=== PATIENT | female | born 1950 | race Caucasian/White ===

== ENCOUNTER → 2020-08-28 10:31 | Outpatient (CLI) | payer MEDICARE, SELFPAY ==
--- NOTE | ~2020-08-28 | MM_ITS ---
EXAMINATION: MM screening [facility] BI w chandni HISTORY: Screening TECHNIQUE: Craniocaudal and mediolateral oblique 3-D tomosynthesis images were obtained and synthetic 2-D images were generated. CAD analysis was submitted and interpreted. COMPARISON: Comparison to multiple prior studies sequentially, with oldest reviewed study dated 08/23. BREAST PARENCHYMAL COMPOSITION: Breast composed of scattered areas of fibroglandular density. FINDINGS: There is no evidence of suspicious mass, calcification, or architectural distortion to sugg est malignancy in either breast. There has been no suspicious interval change. IMPRESSION: 1. No mammographic evidence of malignancy. 2. Recommend routine screening mammography in one year. BI-RADS Category 1: Negative Reviewed, dictated and finalized at location A.
== END ==
PROVIDERS: PCP Family Medicine; Visit Provider Family Medicine
DX: Z12.31 Encounter for screening mammogram for malignant neoplasm of breast (principal)
CPT/HCPCS: 77063; 77067

== ENCOUNTER 2021-02-03 13:28 | Inpatient (IN) | payer MEDICARE, SELFPAY ==
--- NOTE | ~2021-02-03 | CT_ITS ---
EXAMINATION: CT abdomen pelvis w con DATE: 02/03/2021 14:33 INDICATION: Left lower quadrant pain TECHNIQUE: Computed tomography (CT) of the abdomen and pelvis was performed with 100 cc Omnipaque 350 intravenous contrast. The dose-length product was 558.05 mGy-cm. Automated exposure control and iter ative reconstruction technique were employed. COMPARISON: No prior studies for comparison. FINDINGS: Lung bases are unremarkable. No significant pleural or pericardial effusion. Heart size is normal. Small hiatal hernia. Mild thickening of the distal esophagus. Mild atherosclerosis of the aor ta without evidence for aneurysm. Status post cholecystectomy with expected prominence of the bile ducts. The liver, pancreas, adrenal glands are unremarkable. There are bilateral renal parapelvic cysts. There are calcified granulomas o f the spleen. There is abnormal thickening of the ascending colon with a dilated stool filled cecum in the pelvis. Cecal obstruction cannot be excluded. Scattered colonic diverticulosis without evidence for acute div erticulitis. Bladder is unremarkable. Status post hysterectomy. There are pedicle screws consistent w ith posterior fusion at L4-S1. IMPRESSION: 1. Abnormal thickening with wall enhancement of the ascending colon with dilated stool filled cecum, suspicious for cecal obstruction. Possible etiologies for colon wall thickening include the infectiou s/inflammatory and less likely ischemic colitis. 2: Small hiatal hernia with mild thickening of the distal esophagus, suspicious for esophagitis. Reviewed, dictated and finalized at location A. IMPRESSION: 1. Abnormal thickening with wall enhancement of the ascending colon with dilate d stool filled cecum, suspicious for cecal obstruction. Possible etiologies for colon wall thickening include the infectious/inflammatory and less likely isch emic colitis. 2: Small hiatal hernia with mild thickening of the distal esophagus, suspicious for esophagitis.
--- NOTE | ~2021-02-03 | XR_ITS ---
EXAMINATION: XR abdomen/kub 1V DATE: 02/04/2021 05:41 INDICATION: Cecal stool ball. Bowel obstruction. TECHNIQUE: A supine view of the abdomen was obtained. COMPARISON: CT abdomen and pelvis 02/03/2021 FINDINGS: There is a persistent stool ball in the cecum. The small bowel is normal in caliber. There are changes of posterior fusion procedure in lumbosacral spine. IMPRESSION: 1. Persistent stool ball in the cecum. Reviewed, dictated and finalized at location A.
--- NOTE | ~2021-02-03 | XR_ITS ---
EXAMINATION: XR abdomen/kub 1V DATE: 02/05/2021 06:07 INDICATION: Stool ball in the cecum. TECHNIQUE: A supine view of the abdomen was obtained. COMPARISON: Abdomen radiograph 02/04/2021 FINDINGS: There is contrast in the colon. There is a stricture of proximal ascending colon. There are no dilated loops of bowel. The nasogastric tube tip is in the stomach. Surgical clips in the right u pper quadrant are likely from cholecystectomy. There are changes of posterior fusion procedure in lum bar spine. IMPRESSION: 1. Stricture of the proximal ascending colon suspicious for malignancy. Colonoscopy is recommended. Reviewed, dictated and finalized at location A. IMPRESSION: 1. Stricture of the proximal ascending colon suspicious for malignancy. Colonos copy is recommended.
--- NOTE | ~2021-02-03 | XR_ITS ---
XR abdomen NG/feed tube insert INDICATION: Evaluate NG tube position. TECHNIQUE: Limited KUB perform for evaluating NG tube . COMPARISON: No prior studies for comparison. FINDINGS: NG tube tip in the stomach. Visualized bowel gas pattern is unremarkable.There is residual contrast in the kidneys. IMPRESSION: 1: NG tube tip in the stomach. Reviewed, dictated and finalized at location A.
--- NOTE | ~2021-02-03 | XR_ITS ---
EXAMINATION: XR enema water soluble DATE: 02/04/2021 08:52 INDICATION: Ascending colon stricture. TECHNIQUE: A vat skimmer radiograph was obtained. A catheter was inserted into the patient's rectum. Contra st was infused by gravity. Fluoroscopic spot images and conventional radiographs were obtained. Fluor oscopy exposure time was 0.5 minutes. The total number of images was 35. COMPARISON: CT abdomen and pelvis 02/03/2021 FINDINGS: The nasogastric tube tip is in the stomach. There are surgical clips from cholecystectomy. There are changes of posterior fusion procedure in lumbar spine. There are scattered diverticula in t he colon. There is a stricture of the proximal ascending colon. IMPRESSION: 1. Stricture of the proximal ascending colon suspicious for malignancy. Colonoscopy is recommended. Reviewed, dictated and finalized at location A. IMPRESSION: 1. Stricture of the proximal ascending colon suspicious for malignancy. Colonos copy is recommended.
[2021-02-03 13:32] VITALS: BP 156/90; PULSE 105; RESP 18; TEMP 36.1; O2SAT 98
[2021-02-03 13:46] LABS: Basophils Absolute Auto 0.1 K/mm3 (0.0-0.1); Basophils Percent Auto 0.4 % (0.2-1.2); Eosinophils Absolute Auto 0.3 K/mm3 (0-0.3); Eosinophils Percent Auto 2.5 % (0-4.4); Hematocrit 45.3 % (37.0-47.0); Hemoglobin 14.9 g/dL (12.0-15.0); Immature Granulocyte Absolute 0.05 K/mm3 (0.00-0.031); Immature Granulocyte Percent A 0.4 % (0-0.5); Lymphocytes Percent Auto 35.5 % (18.3-44.2); Mean Corpuscular HGB Conc 32.9 g/dl (32-36); Mean Corpuscular Hemoglobin 28.6 pg (26-34); Mean Corpuscular Volume 86.9 fl (80-100); Mean Platelet Volume 9.3 fl (7.4-10.4); Monocytes Absolute Auto 0.6 K/mm3 (0.1-0.6); Monocytes Percent Auto 4.8 % (2.6-8.5); Neutrophils Percent Auto 56.4 % (45.5-73.1); Platelet Count Result 411 k/mm3 (150-375); Red Blood Count 5.21 M/mm3 (4.2-5.4); Red Cell Distribution Width 12.8 % (11.5-14.5); White Blood Count 12.4 K/mm3 (4.5-10.0)
[2021-02-03 13:48] LABS: Add Urine Microscopic? NO; Appearance Urine Clear (Clear); Bilirubin Urine Negative (Negative); Blood Urine Negative (Negative); Color Urine Yellow (Yellow); Glucose Urine UA Negative (Negative); Ketones Urine Negative (Negative); Leukocyte Esterase Ur Negative LEU/UL (Negative); Nitrate Urine Negative (Negative); Protein Urine Negative (Negative); Specific Grav Ur 1.012 (1.001-1.035); Urobilinogen Urine Negative mg/dL (<2.0)
[2021-02-03 13:58] LABS: Alanine Aminotransferase 24 U/L (4-35); Albumin Level 4.6 g/dL (3.5-5.1); Alkaline Phosphatase 129 U/L (38-126); Anion Gap 6 mmol/L (8-16); Aspartate Amino Transferase 36 U/L (14-36); Bilirubin,Total 0.6 mg/dL (0.2-1.3); Blood Urea Nitrogen 12 mg/dL (7-17); Calcium 9.5 mg/dL (8.4-10.2); Carbon Dioxide 35 mmol/L (22-30); Chloride 97 mmol/L (98-107); Estimated CRCL calculation 70 ml/min; Estimated Glomerular Filt Rate > 60; Glucose 157 mg/dL (65-105); Lipase 90 U/L (23-300); Potassium 3.4 mmol/L (3.4-5.0); Sodium 138 mmol/L (137-145)
[2021-02-03] MEDS: ONDANSETRON INJ 4 MG/2 ML VIAL IV PUSH (14:02)
[2021-02-03] MEDS: MORPHINE SULFATE (*CRX) 4 MG/ML INJ IV PUSH (14:02)
[2021-02-03] MEDS: SODIUM CHLORIDE 0.9% IV 1,000 ML 150 ML IV CONT (14:02)
--- NOTE | 2021-02-03 14:53 | ED.ABDPAIN ---
HPI - Abdominal Pain General Chief Complaint: Abdominal Pain Stated Complaint: abd spasms Time Seen by Provider: 02/03/21 13:35 Source: patient and family Mode of arrival: ambulatory Limitations: no limitations History of Present Illness HPI narrative: 70-year-old with a history of hypertension, diabetes, hypothyroidism here with the complaints of bloating sensation and diffuse abdominal pain since this morning. She denies nausea, vomiting or fever. She also mentions that she is unable to pass flatus. No previous history of any bowel obstruction. Had multiple abdominal surgeries in the past which includes cholecystectomy, appendectomy, hysterectomy. MD elicited complaint: abdominal pain Pertinent past history: diverticulitis Onset (ago): day(s) (1) Pain Consistency: intermittent Location: diffuse Severity: moderate Quality: cramping Migration to: no migration Exacerbating factors: nothing Relieving factors: nothing Related Data Allergies Allergy/AdvReac Type Severity Reaction Status Date / Time lisinopril Allergy Unknown Unknown Verified 02/03/21 13:36 Review of Systems Review of Systems: All systems reviewed & are unremarkable except as noted in HPI and below Constitutional: Constitutional: Reports no additional constitutional complaints Eyes: Eyes: Reports no additional eye complaints ENT: Reports system reviewed and no additional complaints, except as documented Cardiovascular: Cardiovascular: Reports no additional cardiovascular complaints Respiratory: Respiratory: Reports no additional respiratory complaints Gastrointestinal: Gastrointestinal: Reports as per HPI Genitourinary: Genitourinary: Reports no additional female genitourinary complaints Musculoskeletal: Musculoskeletal: Reports no additional musculoskeletal complaints Neurologic: Reports system reviewed and no additional complaints, except as documented PMFSH Social History Social History Smoking status: Never smoker Alcohol intake: never Gender identity (if verbalized by the patient): Female Exam Narrative: Exam Narrative: GENERAL: Well-appearing, well-nourished, and in no acute distress. HEAD: Normocephalic, atraumatic. EYES: PERRLA and EOMI. NECK: Supple. CHEST: Clear to auscultation. No respiratory distress. HEART: Regular rate and rhythm. No murmur heard. Normal peripheral pulses. ABDOMEN: Soft, nondistended, diffuse tenderness more so on the left EXTREMITIES: Normal range of motion. No edema. SKIN: Warm, dry, no rash. NEURO: No focal deficits. Alert and oriented x3. PSYCH: Normal mood and affect. Course Course Emergency Course: Discussed labs, CT findings with the patient. Gave her Dilaudid for pain control discussed with Dr. Claudio recommended NG placement and admit to the hospital. Vital Signs Vital signs: Vital Signs Temperature 36.1 C L 02/03/21 13:32 Pulse Rate 105 H 02/03/21 13:32 Respiratory Rate 18 02/03/21 13:32 Blood Pressure 156/90 H 02/03/21 13:32 Pulse Oximetry 98 02/03/21 13:32 Temperature 36.1 C L 02/03/21 13:32 Pulse Rate 105 H 02/03/21 13:32 Respiratory Rate 18 02/03/21 13:32 Blood Pressure 156/90 H 02/03/21 13:32 Pulse Oximetry 98 02/03/21 13:32 MDM - Abdominal Pain MDM Narrative Medical decision making narrative: With a given history of diverticulitis and diffuse abdominal pain I like to speak with CBC, chemistry and CT of the abdomen meanwhile will control of pain with pain medication. Differential Diagnosis Differential diagnosis: Likely abdominal pain, constipation, diverticulitis and gastroenteritis Lab Data Result diagrams: 02/03/21 13:38 02/03/21 13:38 Labs: Lab Results 02/03/21 02/03/21 02/03/21 Range/Units 13:38 13:38 13:38 WBC 12.4 H (4.5-10.0) K/mm3 RBC 5.21 (4.2-5.4) M/mm3 Hgb 14.9 (12.0-15.0) g/dL Hct 45.3 (37.0-47.0) % MCV 86.9 (80-100) fl
[2021-02-03] MEDS: HYDROmorphone HCL INJ (*CRX) 1 MG/ML SYR IV PUSH (15:21)
[2021-02-03 15:38] VITALS: BP 140/73; PULSE 93; RESP 20; O2SAT 98
[2021-02-03 16:26] VITALS: BP 130/76; PULSE 89; RESP 20; O2SAT 96
--- NOTE | 2021-02-03 16:50 | ADMGEN ---
This patient, Li Grimes, was admitted to Medical Room 244-. Patient/family oriented to hospital policies and general routines including ID bracelet, bed and alarms, visiting hours, pain management, procedures, bathroom and other care routines, personal items, smoking policy, room service/diet, and visiting hours. Information on how to activate the Rapid Response Team has been discussed. Patient/Family are encouraged to report perceived risks to care and to ask questions if they do not understand what they are told or what they should do.
[2021-02-03 17:00] VITALS: BP 129/67; PULSE 91; RESP 14; TEMP 35.9; O2SAT 97; BMI 28.3
[2021-02-03] MEDS: SODIUM CHLORIDE 0.9% IV 1,000 ML 125 ML IV CONT (17:00)
--- NOTE | 2021-02-03 17:32 | PM.IMHP ---
H&P: HPI History of Present Illness Date/Time: 02/03/21 17:32 Chief Complaint: lower abdominal pain Narrative: 62-year-old female was in her usual state of health until around 4:00 p.m. on February 02. After the evening meal she began to experience bloating and intermittent cramping in hypogastric am and both lower quadrants. The cramping became progressively more severe and more frequent. Persisted several seconds at a time. She tolerated to the night. However on the morning of admission she presented the emergency department because the pain had not relented and was occurring more frequently. The pain did not radiate. She did not note any exacerbating or alleviating factors. She denied associated nausea vomiting diarrhea constipation fevers chills or sweats. She denied change in urination including dysuria hematuria frequency or urgency. Her last bowel movement was at 10:15 a.m. February 03. She denied recent change in stools or diet. She denied recent loss of appetite or weight loss. Two months ago she had a similar episode of mild hypogastric bilateral lower quadrant cramps that persisted for a few days. After she increased fluid intake and drink cranberry juice it resolved. She has seemed it was a urinary infection. 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 H/O tubal ligation History of appendectomy Hx of cholecystectomy Social History Social History Smoking status: Never smoker Alcohol intake: never Substance use: never Gender identity (if verbalized by the patient): Female Spiritual care concerns: No Meds Home Medications and Allergies Home Medications Medication Instructions Recorded Confirmed Type Vitamin D3 2,000 mg PO DAILY 02/03/21 02/03/21 History escitalopram oxalate 30 mg PO DAILY 02/03/21 02/03/21 History escitalopram oxalate 30 mg PO DAILY 02/03/21 02/03/21 History flaxseed oil 1 caplet PO DAILY 02/03/21 02/03/21 History hydrochlorothiazide 25 mg PO DAILY 02/03/21 02/03/21 History levothyroxine 125 mcg PO DAILY 02/03/21 02/03/21 History metformin 500 mg PO BID 02/03/21 02/03/21 History Allergies Allergy/AdvReac Type Severity Reaction Status Date / Time lisinopril Allergy Unknown Unknown Verified 02/03/21 17:08 Vital Signs Vital Signs - 24 hr 02/03/21 13:32 02/03/21 15:38 02/03/21 16:26 Temperature 97 F L Pulse Rate 105 H 93 89 Respiratory Rate 18 20 20 Blood Pressure 156/90 H 140/73 130/76 Pulse Oximetry 98 98 96 02/03/21 17:00 Temperature 96.7 F L Pulse Rate 91 Respiratory Rate 14 Blood Pressure 129/67 Pulse Oximetry 97 Exam Narrative: Exam Narrative: HEENT: EOMI, PERRL, sclerae nonicteric, pharyngeal mucosa pink and intact NECK: No JVD, adenopathy, or thyromegaly CHEST: Clear to auscultation. Normal effort. HEART: NL S1/S2, regular, no murmur ABDOMEN: BS+, soft, TENDER RIGHT FLANK TO LOWER QUADRANT WITHOUT GUARDING OR REBOUND, no mass, no bruits EXTREMITIES: No cyanosis, edema, or clubbing NEUROLOGIC: CN intact and symmetric to inspection. MUSCULOSKELETAL: Tone and strength symmetric. PSYCH: Alert. Oriented to person, place, and time. H&P: Results Labs Labs: Short CBC 02/03/21 Range/Units 13:38 WBC 12.4 H (4.5-10.0) K/mm3 Hgb 14.9 (12.0-15.0) g/dL Hct 45.3 (37.0-47.0) % Plt Count 411 H (150-375) k/mm3 [facility] 02/03/21 13:38 Sodium 138 Potassium 3.4
[2021-02-03 18:46] LABS: Glucose Point of Care 108 (65-105)
[2021-02-03 20:00] VITALS: PULSE 92; RESP 16; O2SAT 95
[2021-02-03 20:33] VITALS: BP 122/60; PULSE 92; RESP 16; TEMP 36.6; O2SAT 95
[2021-02-03] MEDS: HYDROmorphone HCL INJ (*CRX) 1 MG/ML SYR 0.5 MG IV PUSH (20:44)
[2021-02-04] MEDS: SODIUM CHLORIDE 0.9% IV 1,000 ML 125 ML IV CONT ×2 (01:00→11:49)
[2021-02-04 04:52] LABS: Hematocrit 40.9 % (37.0-47.0); Hemoglobin 13.4 g/dL (12.0-15.0); Mean Corpuscular HGB Conc 32.8 g/dl (32-36); Mean Corpuscular Hemoglobin 28.5 pg (26-34); Mean Corpuscular Volume 86.8 fl (80-100); Mean Platelet Volume 9.3 fl (7.4-10.4); Platelet Count Result 357 k/mm3 (150-375); Red Blood Count 4.71 M/mm3 (4.2-5.4); Red Cell Distribution Width 12.6 % (11.5-14.5); White Blood Count 10.4 K/mm3 (4.5-10.0)
[2021-02-04 05:10] LABS: Alanine Aminotransferase 77 U/L (4-35); Albumin Level 3.9 g/dL (3.5-5.1); Alkaline Phosphatase 205 U/L (38-126); Anion Gap 3 mmol/L (8-16); Aspartate Amino Transferase 116 U/L (14-36); Bilirubin,Total 0.7 mg/dL (0.2-1.3); Blood Urea Nitrogen 9 mg/dL (7-17); CRP 2.9 mg/dL (<1.0); Calcium 8.8 mg/dL (8.4-10.2); Carbon Dioxide 37 mmol/L (22-30); Chloride 100 mmol/L (98-107); Estimated CRCL calculation 80 ml/min; Estimated Glomerular Filt Rate > 60; Glucose 139 mg/dL (65-105); Magnesium 1.8 mg/dL (1.6-2.3); Phosphorus 3.9 mg/dL (2.5-4.5); Potassium 3.6 mmol/L (3.4-5.0); Sodium 140 mmol/L (137-145)
[2021-02-04 05:14] LABS: Glucose Point of Care 126 (65-105)
[2021-02-04 05:36] LABS: Glucose Point of Care 158 (65-105)
[2021-02-04] MEDS: LEVOTHYROXINE SODIUM INJ 100 MCG/5 ML VIAL 60 MCG IV PUSH (05:36)
[2021-02-04 06:00] VITALS: BP 114/70; PULSE 84; RESP 14; TEMP 36.4; O2SAT 95
--- NOTE | 2021-02-04 08:09 | PM.CNGS ---
Assessment and Plan Assessment and plan (1) Fecal impaction of colon: Code(s): K56.41 - Fecal impaction Status: Acute Assessment and Plan: patient improved after NG suction. I reviewed her CT scan independently as well as her plain films of the abdomen. Etiology of the cecal stool ball is unclear. I will go ahead and get a water-soluble contrast enema this morning. If obstructing mass is found, would plan for right colectomy. If no obstruction noted, consider oral per gives and possibly colonoscopy. Continue NG suction for now. (2) Hypertension, essential: Code(s): I10 - Essential (primary) hypertension Status: Chronic (3) Type 2 diabetes mellitus without complication: Qualifiers: Diabetes mellitus fci insulin use: without ferry terminal agent use Qualified Code(s): E11.9 - Type 2 diabetes mellitus without complications Code(s): E11.9 - Type 2 diabetes mellitus without complications Status: Chronic (4) Hx of thyroid cancer: Code(s): Z85.850 - Personal history of malignant neoplasm of thyroid Status: Chronic History of Present Illness Consult details Consult date: 02/04/21 Reason for consult: abdominal pain Narrative: the patient is a 70-year-old woman who tells me that for over a year she has had some left lower flank pain that can be pretty severe. This will radiate across her lower abdomen and then sometimes up to her shoulders. She has found some relief with this with Mylanta. Sometime she finds relief with a bowel movement. The pain is severe enough that as she is out of the house, she has to go home due to the discomfort. She had a colonoscopy a couple of years ago. I reviewed the report. This was done by Dr. Majano November 27, 2017. He was able to reach the cecum. The colonoscopy was negative except for some diverticulosis. The patient's present illness began 2 days ago on 02/02/2021. They ate an early supper. After supper, about 430 in the afternoon, she started having bilateral subcostal abdominal pain. She then noticed some abdominal swelling or distension. The pain then moved to the suprapubic area and was across the entire lower abdomen. She tolerated this through the night but then came to the emergency room yesterday 02/03/2021. She had a bowel movement yesterday morning. She has not had nausea or vomiting but has felt very distended. She was noted to be tachycardic with an elevated blood pressure in the emergency room. She had no fever. Her white blood cell count was elevated to 12,400. she was noted to have diffuse abdominal tenderness more in the left lower quadrant than the right. CT scan of the abdomen and pelvis was performed. This showed a stool ball in the cecum. Cecum was actually located in the pelvis. There was concern for a narrowing or stricture in the proximal ascending colon as the cause of the cecal stool ball. Small intestine however was not dilated. With the concern for obstruction, the nasogastric tube was placed and she was admitted to the hospital. She had about 600 cc from her NG tube through the night. She notices the pain is slightly better today and her abdominal is tension is gone. She still has pain but now it is mostly in the right lower quadrant. She is seen now in consultation regarding her cecal stool ball with potential for ascending colonic obstruction. Patient has had several surgeries including laparoscopic cholecystectomy, appendectomy and hysterectomy. I know her from laparoscopic cholecystectomy 7 years ago. Review of Systems Review of Systems: All systems reviewed & are unremarkable except as noted in HPI and below Constitutional: Constitutional: Denies chills and Denies fever(s) Cardiovascular: Cardiovascular: Denies chest pain, Denies diaphoresis, Denies dyspnea and Denies paroxysmal nocturnal dyspnea Respiratory: Respiratory: Denies chest congestion, Denies cough and Denies dyspnea Gastrointestinal
[2021-02-04 08:23] LABS: Glucose Point of Care 159 (65-105)
[2021-02-04 09:21] LABS: Hematocrit 42.6 % (37.0-47.0); Hemoglobin 14.2 g/dL (12.0-15.0); Mean Corpuscular HGB Conc 33.3 g/dl (32-36); Mean Corpuscular Hemoglobin 28.6 pg (26-34); Mean Corpuscular Volume 85.7 fl (80-100); Mean Platelet Volume 9.1 fl (7.4-10.4); Platelet Count Result 405 k/mm3 (150-375); Red Blood Count 4.97 M/mm3 (4.2-5.4); Red Cell Distribution Width 12.7 % (11.5-14.5); White Blood Count 10.2 K/mm3 (4.5-10.0)
[2021-02-04] MEDS: ENOXAPARIN 40 MG/0.4 ML SYRINGE SUB-Q (09:30)
[2021-02-04 09:34] VITALS: RESP 14; O2SAT 96
[2021-02-04 09:34] LABS: Anion Gap 5 mmol/L (8-16); Blood Urea Nitrogen 11 mg/dL (7-17); Calcium 8.8 mg/dL (8.4-10.2); Carbon Dioxide 35 mmol/L (22-30); Chloride 99 mmol/L (98-107); Estimated CRCL calculation 80 ml/min; Estimated Glomerular Filt Rate > 60; Glucose 158 mg/dL (65-105); Magnesium 1.9 mg/dL (1.6-2.3); Potassium 3.6 mmol/L (3.4-5.0); Sodium 139 mmol/L (137-145)
[2021-02-04] MEDS: HYDROmorphone HCL INJ (*CRX) 1 MG/ML SYR 0.5 MG IV PUSH (09:34)
[2021-02-04 12:05] LABS: Glucose Point of Care 114 (65-105)
--- NOTE | 2021-02-04 14:32 | PM.IMPN ---
Progress Note: A&P Assessment and Plan (1) Bowel obstruction: Qualifiers: Intestinal obstruction extent: complete Intestinal obstruction type: unspecified Qualified Code(s): K56.601 - Complete intestinal obstruction, unspecified as to cause Code(s): K56.609 - Unspecified intestinal obstruction, unspecified as to partial versus complete obstruction Status: Acute Assessment and Plan: differential diagnosis includes adhesions, infection, ischemia, inflammatory bowel disease in light of colonoscopy less than 5 years ago neoplasm is clinically unlikely IV fluids, nasogastric tube, broad-spectrum antibiotics with Zosyn Follow-up labs and clinical course 02/04/21 14:32 patient is 70-year-old female presented emergency department with a complaint abdominal pain, CT scan of the abdomen showed Abnormal thickening with wall enhancement of the ascending colon with dilated stool filled cecum, suspicious for cecal obstruction. Possible etiologies for colon wall thickening include the infectious/inflammatory and less likely ischemic colitis. At patient was seen bloated NG tube was placed did help with her bloating and pain to further evaluate today patient had a x-ray abdomen and that showed persistent stool ball in the cecum patient was seen by Dr. Claudio general surgeon to further evaluate patient had a contrast enema which showed Stricture of the proximal ascending colon suspicious for malignancy. Discussed with Dr. Claudio recommending surgical removal of the section to relieve the obstruction which is scheduled for ThursdayFebruary 06, will follow-up. (2) Type 2 diabetes mellitus without complication: Qualifiers: Diabetes mellitus fci insulin use: without turn machine operator use Qualified Code(s): E11.9 - Type 2 diabetes mellitus without complications Code(s): E11.9 - Type 2 diabetes mellitus without complications Status: Chronic Assessment and Plan: low-dose corrective NovoLog every 6 hours by sliding scale (3) Hx of thyroid cancer: Code(s): Z85.850 - Personal history of malignant neoplasm of thyroid Status: Chronic Assessment and Plan: continue suppressive levothyroxine at 60 mcg IV q.a.m. as home dose is 125 mcg q.a.m. (4) Hypertension, essential: Code(s): I10 - Essential (primary) hypertension Status: Chronic Assessment and Plan: currently normotensive monitor and initiate IV corrective therapy if necessary Subjective Date/time seen: 02/04/21 14:32 patient is 70-year-old female presented emergency department with a complaint abdominal pain, CT scan of the abdomen showed Abnormal thickening with wall enhancement of the ascending colon with dilated stool filled cecum, suspicious for cecal obstruction. Possible etiologies for colon wall thickening include the infectious/inflammatory and less likely ischemic colitis. At patient was seen bloated NG tube was placed did help with her bloating and pain to further evaluate today patient had a x-ray abdomen and that showed persistent stool ball in the cecum patient was seen by Dr. Claudio general surgeon to further evaluate patient had a contrast enema which showed Stricture of the proximal ascending colon suspicious for malignancy. Discussed with Dr. Claudoi recommending surgical removal of the section to relieve the obstruction which is scheduled for ThursdayFebruary 06, will follow-up. Review of Systems Review of Systems: All systems reviewed & are unremarkable except as noted in HPI and below Exam Narrative: Exam Narrative: Patient is comfortable, NAD HEENT: eyes are clear and none icteric LUNGS:CTA HEART: RR S1S2 ABD: BS+, diffusely tender Lower extremities: no edema SKIN: nonjaundiced Neuro: grossly intact. Objective Data Vital Signs Vital Signs: Vital Signs - 24 hr 02/03/21 15:38 02/03/21 16:26 02/03/21 17:00 Temperature 96.7 F L Pulse Rate 93 89 91 Respiratory Rate
[2021-02-04 14:40] VITALS: BP 146/71; PULSE 81; RESP 12; TEMP 36.4; O2SAT 98
[2021-02-04 17:06] LABS: Glucose Point of Care 118 (65-105)
[2021-02-04] MEDS: KCL 40 MEQ/D5/0.9% SOD CHL 1,000 ML 80 ML IV CONT (18:58)
[2021-02-04 20:00] VITALS: PULSE 81; RESP 12; O2SAT 98
[2021-02-04 21:56] VITALS: BP 142/67; PULSE 74; RESP 16; TEMP 36.3; O2SAT 99
[2021-02-05] MEDS: LEVOTHYROXINE SODIUM INJ 100 MCG/5 ML VIAL 60 MCG IV PUSH (05:14)
[2021-02-05 05:41] LABS: Hematocrit 40.2 % (37.0-47.0); Hemoglobin 13.3 g/dL (12.0-15.0); Mean Corpuscular HGB Conc 33.1 g/dl (32-36); Mean Corpuscular Hemoglobin 28.9 pg (26-34); Mean Corpuscular Volume 87.4 fl (80-100); Mean Platelet Volume 9.4 fl (7.4-10.4); Platelet Count Result 358 k/mm3 (150-375); Red Cell Distribution Width 12.7 % (11.5-14.5); White Blood Count 9.5 K/mm3 (4.5-10.0)
[2021-02-05 05:45] VITALS: BP 125/76; PULSE 73; RESP 16; TEMP 36; O2SAT 98
[2021-02-05 05:50] LABS: Alanine Aminotransferase 46 U/L (4-35); Albumin Level 3.7 g/dL (3.5-5.1); Alkaline Phosphatase 162 U/L (38-126); Anion Gap 6 mmol/L (8-16); Aspartate Amino Transferase 49 U/L (14-36); Bilirubin,Total 0.4 mg/dL (0.2-1.3); Blood Urea Nitrogen 10 mg/dL (7-17); Calcium 8.5 mg/dL (8.4-10.2); Carbon Dioxide 34 mmol/L (22-30); Chloride 104 mmol/L (98-107); Estimated CRCL calculation 94 ml/min; Estimated Glomerular Filt Rate > 60; Glucose 123 mg/dL (65-105); Potassium 3.5 mmol/L (3.4-5.0); Sodium 144 mmol/L (137-145)
[2021-02-05 06:13] LABS: Glucose Point of Care 113 (65-105)
[2021-02-05 09:22] LABS: Carcinoembryonic Antigen 1.2 ng/mL (0.0-3.0)
--- NOTE | 2021-02-05 09:24 | PM.PNGS ---
Progress Note: A&P Assessment and Plan (1) Fecal impaction of colon: Code(s): K56.41 - Fecal impaction Status: Acute Assessment and Plan: Patient has had multiple BMs following hypaque enema, although this did show that there was a stricture of the proximal ascending colon. Discussed the case and plan with Dr. Claudio. Will continue NG tube decompression and bowel rest. Plan to proceed with a hand-assisted laparoscopic right colectomy by Dr. Claudio tomorrow. Briefly discussed the procedure, possible complications, benefits, and expected recovery with the patient. Questions answered. (2) Type 2 diabetes mellitus without complication: Qualifiers: Diabetes mellitus jail insulin use: without moth exterminator use Qualified Code(s): E11.9 - Type 2 diabetes mellitus without complications Code(s): E11.9 - Type 2 diabetes mellitus without complications Status: Chronic (3) Hypertension, essential: Code(s): I10 - Essential (primary) hypertension Status: Chronic Subjective Subjective Date/Time Seen: 02/05/21 09:24 Patient reports: no new complaints, feels better and bowel movement Interval history: Patient feeling better this morning. Multiple BMs following water-soluble contrast study. Review of Systems Review of Systems: All systems reviewed & are unremarkable except as noted in HPI and below Exam Const: General: comfortable, no acute distress, alert and awake Orientation/consciousness: patient oriented x3 GI: Inspection: non-distended and no visible herniation GI Palp: Yes Soft to palpation, Yes Tenderness to palpation present (GI) (mild RLQ) and No Guarding due to palpation present (GI) Auscultation: Hypoactive bowel sounds present Skin: General skin exam: normal color Neuro: General: moves all extremities and no focal motor deficits Speech: normal speech Extrem: General: no clubbing, cyanosis or edema Psych: Mental Status: mental status grossly normal Attitude: cooperative Thought process: Normal thought process present Thought content: Yes Normal thought content present Insight: Good insight present (Psych) Judgement: Good judgement present (Psych) Objective Data Vital Signs Vital Signs: Vital Signs - 24 hr 02/04/21 09:34 02/04/21 14:40 02/04/21 20:00 Temperature 97.5 F L Pulse Rate 81 81 Respiratory Rate 14 12 12 Blood Pressure 146/71 H Pulse Oximetry 96 98 98 02/04/21 21:56 02/05/21 05:45 Temperature 97.4 F L 96.8 F L Pulse Rate 74 73 Respiratory Rate 16 16 Blood Pressure 142/67 H 125/76 Pulse Oximetry 99 98 Intake/Output Intake/Output: Intake & Output 02/02/21 02/03/21 02/04/21 02/05/21 22:59 23:59 23:59 23:59 Intake Total 3080 50 Output Total 2000 600 Balance 1080 -550 Meds/Results Medications: Active Medications Generic Name Dose Route Start Last Admin Trade Name Freq PRN Reason Stop Dose Admin Dextrose 12.5 gm 02/03/21 17:30 Dextrose 50% 25 Gm/50 Ml Syringe IV PUSH PRN PRN Hypoglycemia Protocol Enoxaparin Sodium 40 mg 02/04/21 09:00 02/04/21 09:30 Enoxaparin 40 Mg/0.4 Ml Syringe SUB-Q 40 mg DAILY ROBERT Administration Glucagon 1 mg 02/03/21 17:30 Glucagon For Inj 1 Mg Vial IM PRN PRN Hypoglycemia Protocol Glucose 15 gm 02/03/21 17:30 Glucose Oral Gel 15 Gm Of Glucse In 37.5 Gm Tube PO PRN PRN Hypoglycemia Protocol Hydromorphone HCl 0.5 mg 02/03/21 15:17 02/04/21 09:34 Hydromorphone Hcl Inj (*Crx) 1 Mg/Ml Syr IV PUSH 0.5 mg Q4H PRN Administration Pain Rated 7-10 Dextrose 1,000 mls @ 100 mls/hr 02/03/21 17:30 Dextrose 5% 1,000 Ml IVPB PRN PRN Hypoglycemia Protocol Piperacillin/Tazobactam/Dextrose 3.375 gm in 50 mls @ 100 mls/hr 02/03/21 18:10 02/05/21 05:14 Zosyn 3.375 Gm/D5w 50ml Pm IVPB 100 mls/hr Q6HR ROBERT Administration Potassium Chloride/Dextrose/Sod Cl 1,000 mls @ 80 mls/hr 02/04/21 1
[2021-02-05] MEDS: KCL 40 MEQ/D5/0.9% SOD CHL 1,000 ML 80 ML IV CONT ×2 (09:40→23:32)
[2021-02-05] MEDS: ENOXAPARIN 40 MG/0.4 ML SYRINGE SUB-Q (09:40)
[2021-02-05] MEDS: PANTOPRAZOLE SODIUM IV 40 MG VIAL IV PUSH ×2 (11:40→20:45)
[2021-02-05 12:46] LABS: Glucose Point of Care 124 (65-105)
--- NOTE | 2021-02-05 13:10 | PM.IMPN ---
Progress Note: A&P Assessment and Plan (1) Bowel obstruction: Qualifiers: Intestinal obstruction extent: complete Intestinal obstruction type: unspecified Qualified Code(s): K56.601 - Complete intestinal obstruction, unspecified as to cause Code(s): K56.609 - Unspecified intestinal obstruction, unspecified as to partial versus complete obstruction Status: Acute Assessment and Plan: differential diagnosis includes adhesions, infection, ischemia, inflammatory bowel disease in light of colonoscopy less than 5 years ago neoplasm is clinically unlikely IV fluids, nasogastric tube, broad-spectrum antibiotics with Zosyn Follow-up labs and clinical course 02/04 patient is 70-year-old female presented emergency department with a complaint abdominal pain, CT scan of the abdomen showed Abnormal thickening with wall enhancement of the ascending colon with dilated stool filled cecum, suspicious for cecal obstruction. Possible etiologies for colon wall thickening include the infectious/inflammatory and less likely ischemic colitis. At patient was seen bloated NG tube was placed did help with her bloating and pain to further evaluate today patient had a x-ray abdomen and that showed persistent stool ball in the cecum patient was seen by Dr. Claudio general surgeon to further evaluate patient had a contrast enema which showed Stricture of the proximal ascending colon suspicious for malignancy. Discussed with Dr. Claudio recommending surgical removal of the section to relieve the obstruction which is scheduled for ThursdayFebruary 06, will follow-up. 02/05 today patient states feeling better not as bloated, patient is seen by surgery team and plan to have a hand-assisted laparoscopic right colectomy by Dr. Claudio tomorrow, patient clinically stable will continue to monitor will follow patient after the surgery and further recommendation to follow (2) Type 2 diabetes mellitus without complication: Qualifiers: Diabetes mellitus block layer insulin use: without block layer use Qualified Code(s): E11.9 - Type 2 diabetes mellitus without complications Code(s): E11.9 - Type 2 diabetes mellitus without complications Status: Chronic Assessment and Plan: low-dose corrective NovoLog every 6 hours by sliding scale (3) Hx of thyroid cancer: Code(s): Z85.850 - Personal history of malignant neoplasm of thyroid Status: Chronic Assessment and Plan: continue suppressive levothyroxine at 60 mcg IV q.a.m. as home dose is 125 mcg q.a.m. (4) Hypertension, essential: Code(s): I10 - Essential (primary) hypertension Status: Chronic Assessment and Plan: currently normotensive monitor and initiate IV corrective therapy if necessary Subjective Date/time seen: 02/05/21 13:10 02/04 patient is 70-year-old female presented emergency department with a complaint abdominal pain, CT scan of the abdomen showed Abnormal thickening with wall enhancement of the ascending colon with dilated stool filled cecum, suspicious for cecal obstruction. Possible etiologies for colon wall thickening include the infectious/inflammatory and less likely ischemic colitis. At patient was seen bloated NG tube was placed did help with her bloating and pain to further evaluate today patient had a x-ray abdomen and that showed persistent stool ball in the cecum patient was seen by Dr. Claudio general surgeon to further evaluate patient had a contrast enema which showed Stricture of the proximal ascending colon suspicious for malignancy. Discussed with Dr. Claudio recommending surgical removal of the section to relieve the obstruction which is scheduled for ThursdayFebruary 06, will follow-up. 02/05 today patient states feeling better not as bloated, patient is seen by surgery team and plan to have a hand-assisted laparoscopic right colectomy by Dr. Claudio tomorrow, patient clinically stable will continue to monitor will follow pa
[2021-02-05 14:00] VITALS: BP 133/78; PULSE 67; RESP 18; TEMP 36.6; O2SAT 100
[2021-02-05 18:38] LABS: Glucose Point of Care 102 (65-105)
[2021-02-05 21:18] VITALS: BP 144/81; PULSE 80; RESP 16; TEMP 36.2; O2SAT 98
[2021-02-05 21:39] LABS: Glucose Point of Care 127 (65-105)
[2021-02-06] VITALS (16 sets, daily range): BP systolic 107–171; BP diastolic 60–87; PULSE 70–107; RESP 14–18; TEMP 35.8–36.9; O2SAT 91–100
[2021-02-06 00:15] LABS: Glucose Point of Care 129 (65-105)
[2021-02-06 05:34] LABS: Hematocrit 38.4 % (37.0-47.0); Hemoglobin 12.5 g/dL (12.0-15.0); Mean Corpuscular HGB Conc 32.6 g/dl (32-36); Mean Corpuscular Volume 85.9 fl (80-100); Mean Platelet Volume 9.3 fl (7.4-10.4); Platelet Count Result 331 k/mm3 (150-375); Red Blood Count 4.47 M/mm3 (4.2-5.4); Red Cell Distribution Width 12.6 % (11.5-14.5); White Blood Count 9.3 K/mm3 (4.5-10.0)
[2021-02-06] MEDS: LEVOTHYROXINE SODIUM INJ 100 MCG/5 ML VIAL 60 MCG IV PUSH (05:43)
[2021-02-06 05:46] LABS: Alanine Aminotransferase 32 U/L (4-35); Albumin Level 3.5 g/dL (3.5-5.1); Alkaline Phosphatase 128 U/L (38-126); Anion Gap 5 mmol/L (8-16); Aspartate Amino Transferase 36 U/L (14-36); Bilirubin,Total 0.3 mg/dL (0.2-1.3); Blood Urea Nitrogen 11 mg/dL (7-17); Calcium 8.7 mg/dL (8.4-10.2); Carbon Dioxide 31 mmol/L (22-30); Chloride 109 mmol/L (98-107); Estimated CRCL calculation 80 ml/min; Estimated Glomerular Filt Rate > 60; Glucose 146 mg/dL (65-105); Sodium 145 mmol/L (137-145)
[2021-02-06 06:06] LABS: Glucose Point of Care 150 (65-105)
[2021-02-06 08:20] LABS: Glucose Point of Care 138 (65-105)
[2021-02-06] MEDS: PANTOPRAZOLE SODIUM IV 40 MG VIAL IV PUSH (08:41)
[2021-02-06 10:59] LABS: Glucose Point of Care 131 (65-105)
--- NOTE | 2021-02-06 12:03 | PM.IMPN ---
Progress Note: A&P Assessment and Plan (1) Bowel obstruction: Qualifiers: Intestinal obstruction extent: complete Intestinal obstruction type: unspecified Qualified Code(s): K56.601 - Complete intestinal obstruction, unspecified as to cause Code(s): K56.609 - Unspecified intestinal obstruction, unspecified as to partial versus complete obstruction Status: Acute Assessment and Plan: differential diagnosis includes adhesions, infection, ischemia, inflammatory bowel disease in light of colonoscopy less than 5 years ago neoplasm is clinically unlikely IV fluids, nasogastric tube, broad-spectrum antibiotics with Zosyn Follow-up labs and clinical course 02/06/21 12:03 02/04 patient is 70-year-old female presented emergency department with a complaint abdominal pain, CT scan of the abdomen showed Abnormal thickening with wall enhancement of the ascending colon with dilated stool filled cecum, suspicious for cecal obstruction. Possible etiologies for colon wall thickening include the infectious/inflammatory and less likely ischemic colitis. At patient was seen bloated NG tube was placed did help with her bloating and pain to further evaluate today patient had a x-ray abdomen and that showed persistent stool ball in the cecum patient was seen by Dr. Claudio general surgeon to further evaluate patient had a contrast enema which showed Stricture of the proximal ascending colon suspicious for malignancy. Discussed with Dr. Claudio recommending surgical removal of the section to relieve the obstruction which is scheduled for ThursdayFebruary 06, will follow-up. 02/05 today patient states feeling better not as bloated, patient is seen by surgery team and plan to have a hand-assisted laparoscopic right colectomy by Dr. Claudio tomorrow, patient clinically stable will continue to monitor will follow patient after the surgery and further recommendation to follow. 02/06 today patient states feeling much better had a BM this morning, NG tube on clamp and ambulating denies any abdominal pain nausea or vomiting, currently NPO for surgery this afternoon, continue to monitor further recommendation to follow (2) Type 2 diabetes mellitus without complication: Qualifiers: Diabetes mellitus assisted insulin use: without intermodal dispatcher use Qualified Code(s): E11.9 - Type 2 diabetes mellitus without complications Code(s): E11.9 - Type 2 diabetes mellitus without complications Status: Chronic Assessment and Plan: low-dose corrective NovoLog every 6 hours by sliding scale (3) Hx of thyroid cancer: Code(s): Z85.850 - Personal history of malignant neoplasm of thyroid Status: Chronic Assessment and Plan: continue suppressive levothyroxine at 60 mcg IV q.a.m. as home dose is 125 mcg q.a.m. (4) Hypertension, essential: Code(s): I10 - Essential (primary) hypertension Status: Chronic Assessment and Plan: currently normotensive monitor and initiate IV corrective therapy if necessary Subjective Date/time seen: 02/06/21 12:03 02/04 patient is 70-year-old female presented emergency department with a complaint abdominal pain, CT scan of the abdomen showed Abnormal thickening with wall enhancement of the ascending colon with dilated stool filled cecum, suspicious for cecal obstruction. Possible etiologies for colon wall thickening include the infectious/inflammatory and less likely ischemic colitis. At patient was seen bloated NG tube was placed did help with her bloating and pain to further evaluate today patient had a x-ray abdomen and that showed persistent stool ball in the cecum patient was seen by Dr. Claudio general surgeon to further evaluate patient had a contrast enema which showed Stricture of the proximal ascending colon suspicious for malignancy. Discussed with Dr. Claudio recommending surgical removal of the section to relieve the obstruction which is scheduled for Thursday
--- NOTE | 2021-02-06 13:02 | WPDANESEPPF ---
Anes - Initial Pre Proc Eval Procedure: Operation Date: 02/06/21 13:30 Proposed Procedures p Hand Assisted Laparoscopic Right Colectomy - Dougie Claudio MD Date/Time: 02/06/21 13:02 Surgeon: Enoch Cleveland MD Pre Op Diagnosis: Bowel obstruction Patient Data Age: 70 Gender: F Height: 1.66 m Weight: 78.6 kg Last Vital Signs Temp 35.8 C L 02/06/21 07:51 Pulse 70 02/06/21 07:51 Resp 18 02/06/21 08:41 BP 139/61 02/06/21 07:51 Pulse Ox 96 02/06/21 08:41 Allergies Allergy/AdvReac Type Severity Reaction Status Date / Time lisinopril Allergy Unknown Unknown Verified 02/03/21 17:08 Home Medications Medication Instructions Recorded Confirmed Type Vitamin D3 2,000 mg PO DAILY 02/03/21 02/03/21 History escitalopram oxalate 30 mg PO DAILY 02/03/21 02/03/21 History escitalopram oxalate 30 mg PO DAILY 02/03/21 02/03/21 History flaxseed oil 1 caplet PO DAILY 02/03/21 02/03/21 History hydrochlorothiazide 25 mg PO DAILY 02/03/21 02/03/21 History levothyroxine 125 mcg PO DAILY 02/03/21 02/03/21 History metformin 500 mg PO BID 02/03/21 02/03/21 History Laboratory Tests 02/05/21 02/05/21 02/06/21 18:31 20:57 00:12 WBC RBC Hgb Hct MCV MCH MCHC RDW Plt Count MPV Sodium Potassium Chloride Carbon Dioxide Anion Gap BUN Creatinine Estim Creat Clear Calc Estimated GFR Glucose POC Capillary Glucose 102 mg/dl mg/dl 127 mg/dl H mg/dl 129 mg/dl H mg/dl (65-105) (65-105) (65-105) Calcium Total Bilirubin AST ALT Alkaline Phosphatase Total Protein Albumin 02/06/21 02/06/21 02/06/21 05:12 05:12 05:49 WBC 9.3 K/mm3 K/mm3 (4.5-10.0) RBC 4.47 M/mm3 M/mm3 (4.2-5.4) Hgb 12.5 g/dL g/dL (12.0-15.0) Hct 38.4 % % (37.0-47.0) MCV 85.9 fl fl (80-100) MCH 28.0 pg pg (26-34) MCHC 32.6 g/dl g/dl (32-36) RDW 12.6 % % (11.5-14.5) Plt Count 331 k/mm3 k/mm3 (150-375) MPV 9.3 fl fl (7.4-10.4) Sodium 145 mmol/L mmol/L (137-145) Potassium 4.0 mmol/L mmol/L (3.4-5.0) Chloride 109 mmol/L H mmol/L (98-107) Carbon Dioxide 31 mmol/L H mmol/L (22-30) Anion Gap 5 mmol/L L mmol/L (8-16) BUN 11 mg/dL mg/dL (7-17) Creatinine 0.60 mg/dL L mg/dL (0.7-1.0) Estim Creat Clear Calc 80 ml/min ml/min Estimated GFR > 60 (59 - ) Glucose 146 mg/dL H mg/dL (65-105) POC Capillary Glucose 150 mg/dl H mg/dl (65-105) Calcium 8.7 mg/dL mg/dL (8.4-10.2) Total Bilirubin 0.3 mg/dL mg/dL (0.2-1.3) AST 36 U/L U/L (14-36) ALT 32 U/L U/L (4-35) Alkaline Phosphatase 128 U/L H U/L (38-126) Total Protein 7.0 g/dL g/dL (6.3-8.2) Albumin 3.5 g/dL g/dL (3.5-5.1) 02/06/21 02/06/21 08:00 10:57 WBC RBC Hgb Hct MCV MCH MCHC RDW Plt Count MPV Sodium Potassium Chloride Carbon Dioxide Anion Gap BUN Creatinine Estim Creat Clear Calc Estimated GFR Glucose POC Capillary Glucose 138 mg/dl H mg/dl 131 mg/dl H mg/dl (65-105) (65-105) Calcium Total Bilirubin AST ALT Alkaline Phosphatase Total Protein Albumin Patient hx anesthesia problems: none Family hx anesthesia problems: none [facility] Past Medical History Medical History (Updated
[2021-02-06] MEDS: LACTATED RINGERS 1,000 ML 30 ML IV CONT ×3 (13:15→17:54)
--- NOTE | 2021-02-06 14:12 | WPDHPUPDATE1 ---
History and Physical Update Update Date/Time: 02/06/21 14:12 History and Physical has been reviewed, including an updated exam of the patient. There are NO changes in the patient's condition. Risks, benefits, and alternatives have been discussed and questions answered. Patient agrees to proceed with procedure.
[2021-02-06] MEDS: ceFAZolin 2 GM/D5W 50 ML 2 GM/50 ML BAG IVPB (14:19)
[2021-02-06] MEDS: metroNIDAZOLE 500 MG/ISO 100ML 500 MG/100 ML BAG 100 MG IVPB (14:36)
--- NOTE | 2021-02-06 15:09 | PC.NURSE ---
On 02/06/21, the student, [ Tianna Gillespie], provided care and completed [facility] documentation on this patient. I have reviewed the student's documentation and agree with the findings.
[2021-02-06] MEDS: BUPIVACAINE/EPINEPHRINE 0.5% 30 ML VIAL 26 ML INFILTRATE (16:40)
--- NOTE | 2021-02-06 17:12 | PM.PROC ---
Procedure Note - Detailed Date of procedure: 02/06/21 Pre-op diagnosis: Ascending colon stricture, cecal stool ball Ascending colon stricture, cecal stool ball Post-op diagnosis: same Procedure performed: Hand access laparoscopic right colectomy Description of procedure: Brief history-patient presented with lower abdominal pain and was found on CT scan to have a stool ball in the cecum which was located in the pelvis. There appeared to be a mass or stricture in the proximal ascending colon causing the fecal retention. High peak enema was done and also showed evidence of a proximal ascending colon stricture concerning for malignancy. The patient also had abdominal distention and small-bowel obstruction due to the cecal obstruction. She is taken now to surgery for hand access laparoscopic right colectomy. The patient was taken to surgery and induced into general anesthesia. The abdomen was prepped and draped. The proposed hand access incisions was marked in the upper abdomen in the midline above the umbilicus. It was about a 6 cm incision. It was marked on the skin. Local was infiltrated in the area of the anticipated incision and in the deeper subcutaneous tissues. Incision was made and dissection was carried down through the midline fascia. The peritoneal cavity was entered. I checked around the area. There were no anterior abdominal wall adhesions. The Rolf wound guard was then placed. A sponge was placed in the abdomen. The GelPort was then placed. With a hand in the abdomen, I found the area in the right lower quadrant where the camera port would be placed. Local was infiltrated here. Incision was made and a 5 mm trocar was then placed in the right lower quadrant just above the inguinal ligament. We insufflated through here. I then placed under direct visualization another 5 mm port in the left mid abdomen. Again local was used and a 5 mm trocar was placed. We then placed the patient in Trendelenburg with the right side somewhat elevated. The peritoneum was entered just posterior to the cecum and the appendix. We then entered the retroperitoneum and began a medial to lateral dissection of the ascending colon. The cecum was very floppy and distended but no significant stool ball was appreciated. I palpated in the ascending colon for an area of stricture or possibly a tumor. I was not able to feel either 1. I continued the retroperitoneal dissection up to the transverse mesocolon. We stayed above the duodenum and I was able to palpate the right kidney in the retroperitoneum, its expected position. From there I then elevated the distal ileum and terminal ileum. The ileocolic artery was identified. I divided the mesentery proximal to the ileocolic artery. This division was done with the LigaSure. Literally all the dissection was done with the LigaSure. I opened the mesentery up to an area on the distal ileum which would be our proximal extent of resection. I then proceeded staying fairly close to the root of the mesentery over to the ileocolic artery. I dissected around and expose the ileocolic artery near its origin. It was then cauterized and divided with the LigaSure. There was no bleeding. I then continued the mesenteric dissection up to the transverse mesocolon. Care was taken to leave the duodenum located posterior to our mesenteric division. From there I then went to the lateral peritoneal attachments to the cecum and ascending colon. These were divided with the LigaSure as well. This was continued up to the hepatic flexure and likewise the hepatocolic ligament was divided with the LigaSure. Patient had a previous cholecystectomy and there were omental adhesions to the gallbladder fossa. These were divided with the LigaSure to further mobilize the proximal transverse colon. I was then able to expose the transverse colon mesentery. I started the dissection from lateral to medial in the transverse colon mesentery. Vascular struct
[2021-02-06] MEDS: fentaNYL CITRATE INJ (*CRX) 100 MCG/2 ML VIAL 25 MCG IV PUSH ×4 (17:39→17:58)
--- NOTE | 2021-02-06 18:10 | SUR.PHASEI ---
PT DOZING IN INTERVALS. STATES MILD SORENESS TO ABDOMEN. TOLERABLE.
[2021-02-06 18:19] LABS: Glucose Point of Care 131 (65-105)
[2021-02-06] MEDS: KCL 40 MEQ/D5/0.9% SOD CHL 1,000 ML 80 ML IV CONT (18:52)
[2021-02-06] MEDS: HYDROcodone/acetaminophen (*CRX) 5-325 MG TABLET 1 TAB PO (22:29)
[2021-02-07] VITALS (7 sets, daily range): BP systolic 107–154; BP diastolic 56–81; PULSE 88–111; RESP 16–18; TEMP 36.7–37.5; O2SAT 93–96
[2021-02-07] MEDS: LEVOTHYROXINE SODIUM 125 MCG TABLET PO (06:12)
[2021-02-07 06:26] LABS: Alanine Aminotransferase 35 U/L (4-35); Albumin Level 3.3 g/dL (3.5-5.1); Alkaline Phosphatase 145 U/L (38-126); Anion Gap 7 mmol/L (8-16); Aspartate Amino Transferase 47 U/L (14-36); Bilirubin,Total 0.4 mg/dL (0.2-1.3); Blood Urea Nitrogen 7 mg/dL (7-17); Calcium 8.2 mg/dL (8.4-10.2); Carbon Dioxide 26 mmol/L (22-30); Chloride 109 mmol/L (98-107); Estimated CRCL calculation 94 ml/min; Estimated Glomerular Filt Rate > 60; Glucose 177 mg/dL (65-105); Potassium 3.7 mmol/L (3.4-5.0); Sodium 142 mmol/L (137-145)
[2021-02-07 06:28] LABS: Hemoglobin 12.8 g/dL (12.0-15.0); Mean Corpuscular HGB Conc 32.8 g/dl (32-36); Mean Corpuscular Hemoglobin 28.7 pg (26-34); Mean Corpuscular Volume 87.4 fl (80-100); Mean Platelet Volume 10.6 fl (7.4-10.4); Platelet Count Result 327 k/mm3 (150-375); Red Blood Count 4.46 M/mm3 (4.2-5.4); Red Cell Distribution Width 12.9 % (11.5-14.5); White Blood Count 18.2 K/mm3 (4.5-10.0)
[2021-02-07] MEDS: KCL 40 MEQ/D5/0.9% SOD CHL 1,000 ML 80 ML IV CONT (06:40)
[2021-02-07 07:40] LABS: Glucose Point of Care 155 (65-105)
[2021-02-07] MEDS: ESCITALOPRAM OXALATE 10 MG TABLET 30 MG PO (08:05)
[2021-02-07] MEDS: ENOXAPARIN 40 MG/0.4 ML SYRINGE SUB-Q (08:05)
[2021-02-07] MEDS: metFORMIN HCL 500 MG TABLET PO ×2 (08:06→17:32)
[2021-02-07] MEDS: CHOLECALCIFEROL 1,000 UNITS TABLET 2000 UNITS PO (08:06)
[2021-02-07] MEDS: hydroCHLOROthiazide 25 MG TABLET PO (08:07)
[2021-02-07] MEDS: PANTOPRAZOLE 40 MG TABLET PO (08:07)
--- NOTE | 2021-02-07 09:26 | WPDANESPN ---
Anes - Prog Note Post-Op Date/Time: 02/07/21 09:26 Cardiovascular status: normal Respiratory status: normal Airway patency: baseline Mental status: baseline Post-Op hydration status: normal Vital Signs: Last Vital Signs Temp 37.2 C 02/07/21 05:47 Pulse 99 02/07/21 05:47 Resp 16 02/07/21 05:47 BP 118/73 02/07/21 05:47 Pulse Ox 94 02/07/21 05:47 Pain Score (VAS): 1 I/O: Intake & Output 02/06/21 02/07/21 02/07/21 23:59 07:59 15:59 Intake Total 400 1300 Output Total 900 Balance 400 400 Laboratory Tests 02/07/21 05:11 02/07/21 05:11 02/06/21 02/06/21 02/07/21 10:57 18:17 05:11 WBC 18.2 H RBC 4.46 Hgb 12.8 Hct 39.0 MCV 87.4 MCH 28.7 MCHC 32.8 RDW 12.9 Plt Count 327 MPV 10.6 H Sodium Potassium Chloride Carbon Dioxide Anion Gap BUN Creatinine Estim Creat Clear Calc Estimated GFR Glucose POC Capillary Glucose 131 H 131 H Calcium Total Bilirubin AST ALT Alkaline Phosphatase Total Protein Albumin 02/07/21 02/07/21 05:11 07:34 WBC RBC Hgb Hct MCV MCH MCHC RDW Plt Count MPV Sodium 142 Potassium 3.7 Chloride 109 H Carbon Dioxide 26 Anion Gap 7 L BUN 7 Creatinine 0.50 L Estim Creat Clear Calc 94 Estimated GFR > 60 Glucose 177 H POC Capillary Glucose 155 H Calcium 8.2 L Total Bilirubin 0.4 AST 47 H ALT 35 Alkaline Phosphatase 145 H Total Protein 7.0 Albumin 3.3 L Post-procedural complaints: none Patient Feedback: Patient satisfied with anesthetic care.
[2021-02-07] MEDS: HYDROcodone/acetaminophen (*CRX) 5-325 MG TABLET 1 TAB PO ×2 (09:29→22:02)
--- NOTE | 2021-02-07 10:15 | PM.IMPN ---
Progress Note: A&P Assessment and Plan (1) Bowel obstruction: Qualifiers: Intestinal obstruction extent: complete Intestinal obstruction type: unspecified Qualified Code(s): K56.601 - Complete intestinal obstruction, unspecified as to cause Code(s): K56.609 - Unspecified intestinal obstruction, unspecified as to partial versus complete obstruction Status: Acute Assessment and Plan: differential diagnosis includes adhesions, infection, ischemia, inflammatory bowel disease in light of colonoscopy less than 5 years ago neoplasm is clinically unlikely IV fluids, nasogastric tube, broad-spectrum antibiotics with Zosyn Follow-up labs and clinical course 02/07/21 10:15 02/04 patient is 70-year-old female presented emergency department with a complaint abdominal pain, CT scan of the abdomen showed Abnormal thickening with wall enhancement of the ascending colon with dilated stool filled cecum, suspicious for cecal obstruction. Possible etiologies for colon wall thickening include the infectious/inflammatory and less likely ischemic colitis. At patient was seen bloated NG tube was placed did help with her bloating and pain to further evaluate today patient had a x-ray abdomen and that showed persistent stool ball in the cecum patient was seen by Dr. Claudio general surgeon to further evaluate patient had a contrast enema which showed Stricture of the proximal ascending colon suspicious for malignancy. Discussed with Dr. Claudio recommending surgical removal of the section to relieve the obstruction which is scheduled for ThursdayFebruary 06, will follow-up. 02/05 today patient states feeling better not as bloated, patient is seen by surgery team and plan to have a hand-assisted laparoscopic right colectomy by Dr. Claudio tomorrow, patient clinically stable will continue to monitor will follow patient after the surgery and further recommendation to follow. 02/06 today patient states feeling much better had a BM this morning, NG tube on clamp and ambulating denies any abdominal pain nausea or vomiting, currently NPO for surgery this afternoon, continue to monitor further recommendation to follow. 02/07 Patient had hand access laparoscopic right colectomy on 02/06 for bowl obstruction 2/2 to a mass or stricture in the proximal ascending colon causing the fecal retention. patient tolerated surgery well, this morning patient was seen by Dr. Claudio and started patient on clear liquids and patient is tolerating well, patient is not passing any gas, denies any abdominal pain, N/V or fever, patient has elevated white counts, most likely stress related due to surgery, will continue to monitor. (2) Type 2 diabetes mellitus without complication: Qualifiers: Diabetes mellitus ferry terminal supervisor insulin use: without custodial use Qualified Code(s): E11.9 - Type 2 diabetes mellitus without complications Code(s): E11.9 - Type 2 diabetes mellitus without complications Status: Chronic Assessment and Plan: low-dose corrective NovoLog every 6 hours by sliding scale (3) Hx of thyroid cancer: Code(s): Z85.850 - Personal history of malignant neoplasm of thyroid Status: Chronic Assessment and Plan: continue suppressive levothyroxine at 60 mcg IV q.a.m. as home dose is 125 mcg q.a.m. (4) Hypertension, essential: Code(s): I10 - Essential (primary) hypertension Status: Chronic Assessment and Plan: currently normotensive monitor and initiate IV corrective therapy if necessary Subjective Date/time seen: 02/07/21 10:15 02/04 patient is 70-year-old female presented emergency department with a complaint abdominal pain, CT scan of the abdomen showed Abnormal thickening with wall enhancement of the ascending colon with dilated stool filled cecum, suspicious for cecal obstruction. Possible etiologies for colon wall thickening include the infectious/inflammatory and less likely ischemic c
--- NOTE | 2021-02-07 11:30 | PM.PNGS ---
Progress Note: A&P Assessment and Plan (1) Fecal impaction of colon: Code(s): K56.41 - Fecal impaction Status: Acute Assessment and Plan: Doing well POD#1 TAHIR right colectomy. Pain well-controlled. Will advance diet to diabetic diet Encouraged increased ambulation/walking the halls, up in chair for meals, and IS use Pathology pending Repeat labs tomorrow am (2) Type 2 diabetes mellitus without complication: Qualifiers: Diabetes mellitus assisted insulin use: without ferry terminal supervisor use Qualified Code(s): E11.9 - Type 2 diabetes mellitus without complications Code(s): E11.9 - Type 2 diabetes mellitus without complications Status: Chronic (3) Hypertension, essential: Code(s): I10 - Essential (primary) hypertension Status: Chronic Additional Plan Discussed plan of care with Dr. Claudio. Subjective Subjective Date/Time Seen: 02/07/21 11:30 Post Op day: 1 (Hand access laparoscopic right colectomy) Patient reports: voiding w/o difficulty, no flatus, no bowel movement and afebrile Interval history: Patient doing well today. Pain is well-controlled. Tolerating liquid diet without nausea, vomiting, or bloating. No other complaints at this time. Review of Systems Review of Systems: All systems reviewed & are unremarkable except as noted in HPI and below Constitutional: Constitutional: Reports as per HPI, Reports no additional constitutional complaints, Denies chills and Denies fever(s) Cardiovascular: Cardiovascular: Reports no additional cardiovascular complaints, Denies chest pain and Denies leg edema Respiratory: Respiratory: Reports no additional respiratory complaints, Denies cough and Denies dyspnea Gastrointestinal: Gastrointestinal: Reports as per HPI and Reports no additional gastrointestinal complaints Neurologic: Reports system reviewed and no additional complaints, except as documented, Denies confusion and Denies focal weakness Exam Const: General: comfortable, no acute distress, alert and awake Orientation/consciousness: patient oriented x3 Resp: Effort & Inspection: normal respiratory effort Auscultation: clear to auscultation bilaterally Cardio: Rate: regular rate Rhythm: regular rhythm GI: Inspection: non-distended and incision (Abdominal incisions clean and dry, glue intact. Minimal ecchymosis at inc.s) GI Palp: Yes Soft to palpation and Yes Tenderness to palpation present (GI) (incisional) Auscultation: Hypoactive bowel sounds present Rectal Exam: deferred Skin: General skin exam: normal color Rashes: no rashes Neuro: General: moves all extremities and no focal motor deficits Cranial nerves: Yes CN's II-XII intact bilaterally Speech: normal speech Extrem: General: normal to inspection, no clubbing, cyanosis or edema and no calf tenderness Psych: Mental Status: mental status grossly normal Attitude: cooperative Thought process: Normal thought process present Thought content: Yes Normal thought content present Insight: Good insight present (Psych) Judgement: Good judgement present (Psych) Objective Data Vital Signs Vital Signs: Vital Signs - 24 hr 02/06/21 13:21 02/06/21 14:00 02/06/21 17:09 Temperature 98.5 F 96.8 F L 97.0 F L Pulse Rate 86 92 78 Respiratory Rate 16 16 16 Blood Pressure 149/87 H 140/71 107/77 Pulse Oximetry 100 98 99 02/06/21 17:20 02/06/21 17:35 02/06/21 17:50 Temperature Pulse Rate 88 90 85 Respiratory Rate 14 14 14 Blood Pressure 139/83 145/80 H 119/64 Pulse Oximetry 98 92 91 02/06/21 18:05 02/06/21 18:21 02/06/21 18:35 Temperature Pulse Rate 82 84 Respiratory Rate 14 16 16 Blood Pressure 121/75 132/69 Pulse Oximetry 96 97 98 02/06/21 18:51 02/06/21 19:54 02/06/21 20:00 Temperature 96.8 F L Pulse Rate 90 93 Respiratory Rate 16 16 Blood Pressure 133/68 Pulse Oximetry 99 98 96 02/06/21 22:00 02/07/21 01:20 02/07/21 05:47 Temperature 98.1 F 98.3 F 99.0 F Pulse Rate 1
[2021-02-07 11:50] LABS: Glucose Point of Care 160 (65-105)
[2021-02-07] MEDS: ALVIMOPAN 12 MG CAPSULE PO (17:32)
[2021-02-07] MEDS: HYDROcodone/acetaminophen (*CRX) 7.5-325 MG TABLET 1 TAB PO (17:37)
[2021-02-07 18:07] LABS: Glucose Point of Care 130 (65-105)
[2021-02-07 23:57] LABS: Glucose Point of Care 130 (65-105)
[2021-02-08] MEDS: ALVIMOPAN 12 MG CAPSULE PO (05:20)
[2021-02-08 05:30] LABS: Hematocrit 37.7 % (37.0-47.0); Hemoglobin 12.6 g/dL (12.0-15.0); Mean Corpuscular HGB Conc 33.4 g/dl (32-36); Mean Corpuscular Hemoglobin 28.9 pg (26-34); Mean Corpuscular Volume 86.5 fl (80-100); Mean Platelet Volume 9.3 fl (7.4-10.4); Platelet Count Result 320 k/mm3 (150-375); Red Blood Count 4.36 M/mm3 (4.2-5.4); Red Cell Distribution Width 12.9 % (11.5-14.5); White Blood Count 14.3 K/mm3 (4.5-10.0)
[2021-02-08 05:40] VITALS: BP 133/70; PULSE 90; RESP 16; TEMP 36.7; O2SAT 95
[2021-02-08 05:45] LABS: Alanine Aminotransferase 24 U/L (4-35); Albumin Level 3.4 g/dL (3.5-5.1); Alkaline Phosphatase 121 U/L (38-126); Anion Gap 4 mmol/L (8-16); Aspartate Amino Transferase 23 U/L (14-36); Bilirubin,Total 0.4 mg/dL (0.2-1.3); Blood Urea Nitrogen 5 mg/dL (7-17); Calcium 8.5 mg/dL (8.4-10.2); Carbon Dioxide 31 mmol/L (22-30); Chloride 104 mmol/L (98-107); Estimated CRCL calculation 94 ml/min; Estimated Glomerular Filt Rate > 60; Glucose 129 mg/dL (65-105); Potassium 3.2 mmol/L (3.4-5.0); Sodium 139 mmol/L (137-145)
[2021-02-08] MEDS: LEVOTHYROXINE SODIUM 125 MCG TABLET PO (05:46)
[2021-02-08 07:31] LABS: Glucose Point of Care 132 (65-105)
[2021-02-08] MEDS: metFORMIN HCL 500 MG TABLET PO (08:42)
[2021-02-08] MEDS: hydroCHLOROthiazide 25 MG TABLET PO (08:43)
[2021-02-08] MEDS: ESCITALOPRAM OXALATE 10 MG TABLET 30 MG PO (08:43)
[2021-02-08] MEDS: CHOLECALCIFEROL 1,000 UNITS TABLET 2000 UNITS PO (08:43)
[2021-02-08] MEDS: POTASSIUM CHLORIDE 20 MEQ TABLET.ER PO (08:43)
[2021-02-08] MEDS: PANTOPRAZOLE 40 MG TABLET PO (08:43)
[2021-02-08] MEDS: ENOXAPARIN 40 MG/0.4 ML SYRINGE SUB-Q (08:44)
--- NOTE | 2021-02-08 08:45 | PM.PNGS ---
Progress Note: A&P Assessment and Plan (1) Fecal impaction of colon: Code(s): K56.41 - Fecal impaction Status: Acute Assessment and Plan: patient now 2 days status post hand access laparoscopic right colectomy. She is doing well and we will discharge today if okay with hospitalist. She can be on a regular diabetic diet. Encouraged to ambulate. I will see her in the office in 2 weeks. (2) Bowel obstruction: Qualifiers: Intestinal obstruction extent: complete Intestinal obstruction type: unspecified Qualified Code(s): K56.601 - Complete intestinal obstruction, unspecified as to cause Code(s): K56.609 - Unspecified intestinal obstruction, unspecified as to partial versus complete obstruction Status: Resolved (3) Hypokalemia: Code(s): E87.6 - Hypokalemia Status: Acute Assessment and Plan: potassium 3.2 today. Will supplement after discharge. (4) Type 2 diabetes mellitus without complication: Qualifiers: Diabetes mellitus intermediate manager insulin use: without jail use Qualified Code(s): E11.9 - Type 2 diabetes mellitus without complications Code(s): E11.9 - Type 2 diabetes mellitus without complications Status: Chronic (5) Hypertension, essential: Code(s): I10 - Essential (primary) hypertension Status: Chronic Subjective Subjective Date/Time Seen: 02/08/21 08:45 Post Op day: 2 Patient reports: no new complaints, feels better, pain is less, tolerating a regular diet, no bowel movement and afebrile Review of Systems Review of Systems: All systems reviewed & are unremarkable except as noted in HPI and below Constitutional: Constitutional: Denies headache(s) Cardiovascular: Cardiovascular: Denies chest pain and Denies dyspnea Respiratory: Respiratory: Denies cough and Denies dyspnea Gastrointestinal: Gastrointestinal: Reports as per HPI Neurologic: Denies confusion and Denies headache(s) Exam Const: General: comfortable and no acute distress; No confusion Orientation/consciousness: patient oriented x3 and No confusion GI: Inspection: non-distended and incision ( Incisions dry and healing well) GI Palp: Yes Soft to palpation, Yes Tenderness to palpation present (GI) ( minimal incisional tenderness), No Guarding due to palpation present (GI) and No Rebound tenderness present Auscultation: normal bowel sounds and normoactive bowel sounds Neuro: General: patient oriented x3, no focal motor deficits and No confusion Extrem: General: no calf tenderness and no edema Psych: Affect: normal affect Insight: Good insight present (Psych) Judgement: Good judgement present (Psych) Objective Data Vital Signs Vital Signs: Vital Signs - 24 hr 02/07/21 10:00 02/07/21 14:00 02/07/21 19:20 Temperature 36.7 C 36.7 C 37.5 C Pulse Rate 88 88 Respiratory Rate 16 16 18 Blood Pressure 129/57 L 107/56 L 154/81 H Pulse Oximetry 96 94 94 02/07/21 21:01 02/07/21 23:57 02/08/21 05:40 Temperature 36.8 C 36.7 C Pulse Rate 90 90 Respiratory Rate 18 16 Blood Pressure 132/66 133/70 Pulse Oximetry 94 93 95 Intake/Output Intake/Output: Intake & Output 02/05/21 02/06/21 02/07/21 02/08/21 23:59 23:59 23:59 23:59 Intake Total 2200 1670 2220 Output Total 3169 257 9030 Balance 400 1220 120 Meds/Results Medications: Active Medications Generic Name Dose Route Start Last Admin Trade Name Freq PRN Reason Stop Dose Admin Acetaminophen 500 mg 02/06/21 18:28 Acetaminophen 500 Mg Tablet PO Q6H PRN Mild Pain (1-3) or Fever Hydrocodone Bitart/Acetaminophen 1 tab 02/06/21 18:28 02/07/21 22:02 Hydrocodone/Acetaminophen (*Crx) 5-325 Mg Tablet PO 1 tab Q4H PRN Administration Pain Rated 4-6 Hydrocodone Bitart/Acetaminophen 1 tab 02/06/21 18:28 02/07/21 17:37 Hydrocodone/Acetaminophen (*Crx) 7.5-325 Mg Tablet PO 1 tab Q4H PRN Administration Pain Rated 7-10 Alvimopan
--- NOTE | 2021-02-08 09:59 | PM.DS ---
DS: Admitting Diagnosis Admitting Diagnosis Admitting Diagnosis: Chief Complaint: lower abdominal pain DS: Discharge Diagnosis Discharge Diagnosis (1) Bowel obstruction: Qualifiers: Intestinal obstruction extent: complete Intestinal obstruction type: unspecified Qualified Code(s): K56.601 - Complete intestinal obstruction, unspecified as to cause Code(s): K56.609 - Unspecified intestinal obstruction, unspecified as to partial versus complete obstruction Status: Resolved Assessment and Plan: differential diagnosis includes adhesions, infection, ischemia, inflammatory bowel disease in light of colonoscopy less than 5 years ago neoplasm is clinically unlikely IV fluids, nasogastric tube, broad-spectrum antibiotics with Zosyn Follow-up labs and clinical course 02/07/21 10:15 02/04 patient is 70-year-old female presented emergency department with a complaint abdominal pain, CT scan of the abdomen showed Abnormal thickening with wall enhancement of the ascending colon with dilated stool filled cecum, suspicious for cecal obstruction. Possible etiologies for colon wall thickening include the infectious/inflammatory and less likely ischemic colitis. At patient was seen bloated NG tube was placed did help with her bloating and pain to further evaluate today patient had a x-ray abdomen and that showed persistent stool ball in the cecum patient was seen by Dr. Claudio general surgeon to further evaluate patient had a contrast enema which showed Stricture of the proximal ascending colon suspicious for malignancy. Discussed with Dr. Claudio recommending surgical removal of the section to relieve the obstruction which is scheduled for ThursdayFebruary 06, will follow-up. 02/05 today patient states feeling better not as bloated, patient is seen by surgery team and plan to have a hand-assisted laparoscopic right colectomy by Dr. Claudio tomorrow, patient clinically stable will continue to monitor will follow patient after the surgery and further recommendation to follow. 02/06 today patient states feeling much better had a BM this morning, NG tube on clamp and ambulating denies any abdominal pain nausea or vomiting, currently NPO for surgery this afternoon, continue to monitor further recommendation to follow. 02/07 Patient had hand access laparoscopic right colectomy on 02/06 for bowl obstruction 2/2 to a mass or stricture in the proximal ascending colon causing the fecal retention. patient tolerated surgery well, this morning patient was seen by Dr. Caludio and started patient on clear liquids and patient is tolerating well, patient is not passing any gas, denies any abdominal pain, N/V or fever, patient has elevated white counts, most likely stress related due to surgery, will continue to monitor. (2) Type 2 diabetes mellitus without complication: Qualifiers: Diabetes mellitus long distance operator insulin use: without long distance operator use Qualified Code(s): E11.9 - Type 2 diabetes mellitus without complications Code(s): E11.9 - Type 2 diabetes mellitus without complications Status: Chronic Assessment and Plan: low-dose corrective NovoLog every 6 hours by sliding scale (3) Hx of thyroid cancer: Code(s): Z85.850 - Personal history of malignant neoplasm of thyroid Status: Chronic Assessment and Plan: continue suppressive levothyroxine at 60 mcg IV q.a.m. as home dose is 125 mcg q.a.m. (4) Hypertension, essential: Code(s): I10 - Essential (primary) hypertension Status: Chronic Assessment and Plan: currently normotensive monitor and initiate IV corrective therapy if necessary DS: Summary Hospital Course Reason for hospitalization: Chief Complaint: lower abdominal pain Narrative: 62-year-old female was in her usual state of health until around 4:00 p.m. on February 02. After the evening meal she began to experience bloating and intermittent cramping in hypogastric am and b
== END 2021-02-08 11:41 | disposition home or self-care (01) | DRG 331 ==
LOC: ANHED 15:25 → ANH2MED 02-04 16:12
PROVIDERS: Surgery; Admitting Provider Internal Medicine; Emergency Provider Family Medicine; PCP Family Medicine; Visit Provider Family Medicine
PROC: 0DTF4ZZ Resection of Right Large Intestine, Percutaneous Endoscopic Approach (ICD-10-PCS; CPT 44204; principal; 2021-02-06 13:30)
DX: K56.601 Complete intestinal obstruction, unspecified as to cause (principal); K56.41 Fecal impaction; K57.30 Diverticulosis of large intestine without perforation or abscess without bleeding; I10 Essential (primary) hypertension; E11.9 Type 2 diabetes mellitus without complications; E89.0 Postprocedural hypothyroidism; Z79.84 Long term (current) use of oral hypoglycemic drugs; Z85.850 Personal history of malignant neoplasm of thyroid; Z90.49 Acquired absence of other specified parts of digestive tract; Z90.710 Acquired absence of both cervix and uterus
CPT/HCPCS: 36415; 74018; 74177; 74270; 80048; 80053; 81003; 82378; 82948; 83690; 83735; 84100; 85025; 85027; 86140; 86850; 86900; 86901; 88307; 96361; 96374; 96375; 99285; A9270; C9113; J0690; J1100; J1170; J1650; J2250; J2270; J2405; J2543; J2704; J2710; J3010; J3480; J7030; J7120; Q9967

== ENCOUNTER 2021-10-31 14:28 | Outpatient (CLI) | payer MEDICARE, MEDICAID, SELFPAY ==
--- NOTE | ~2021-10-31 | MM_ITS ---
EXAMINATION: MM screening salty BI w chandni HISTORY: Screening TECHNIQUE: Craniocaudal and mediolateral oblique 3-D tomosynthesis images were obtained and synthetic 2-D images were generated. CAD analysis was submitted and interpreted. COMPARISON: Comparison to multiple prior studies sequentially, with oldest reviewed study dated 10/23. BREAST PARENCHYMAL COMPOSITION: There are scattered areas of fibroglandular density. FINDINGS: There is no evidence of suspicious mass, calcification, or architectural distortion to sugg est malignancy in either breast. There has been no suspicious interval change. IMPRESSION: 1. No mammographic evidence of malignancy. 2. Recommend routine screening mammography in one year. BI-RADS Category 1: Negative Reviewed, dictated and finalized at location A. MATIC OVEN OPERATOR
== END 2021-10-31 14:29 | disposition home or self-care (01) ==
LOC: ANHIMG 14:30
PROVIDERS: PCP Internal Medicine; Visit Provider Nurse Practitioner
DX: Z12.31 Encounter for screening mammogram for malignant neoplasm of breast (principal)
CPT/HCPCS: 77063; 77067

== ENCOUNTER 2022-11-07 10:45 | Outpatient (CLI) | payer MEDICARE, MEDICAID, SELFPAY ==
--- NOTE | ~2022-11-07 | MM_ITS ---
EXAMINATION: MM screening salty BI w chandni HISTORY: Screening TECHNIQUE: Craniocaudal and mediolateral oblique 3-D tomosynthesis images were obtained and synthetic 2-D images were generated. CAD analysis was submitted and interpreted. COMPARISON: Comparison to multiple prior studies sequentially, with oldest reviewed study dated 10/23. BREAST PARENCHYMAL COMPOSITION: Breast composed of scattered areas of fibroglandular density FINDING S: There is no evidence of suspicious mass, calcification, or architectural distortion to suggest mal ignancy in either breast. There has been no suspicious interval change. IMPRESSION: 1. No mammographic evidence of malignancy. 2. Recommend routine screening mammography in one year. BI-RADS Category 1: Negative Reviewed, dictated and finalized at location B. UCTION TEAM ADVISOR
== END 2022-11-07 10:46 | disposition home or self-care (01) ==
LOC: ANHIMG 10:48
PROVIDERS: PCP Internal Medicine; Visit Provider Student in an Organized Health Care Education/Training Program
DX: Z12.31 Encounter for screening mammogram for malignant neoplasm of breast (principal)
CPT/HCPCS: 77063; 77067

== ENCOUNTER 2024-02-04 14:53 | Outpatient (CLI) | payer MEDICARE, SELFPAY ==
--- NOTE | ~2024-02-04 | MM_ITS ---
EXAMINATION: MM screening salty BI w chandni HISTORY: Screening mammogram TECHNIQUE: Craniocaudal and mediolateral oblique 3-D tomosynthesis images were obtained and synthetic 2-D images were generated. CAD analysis was submitted and interpreted. COMPARISON: 11/07/2022, 10/31/2021 bilateral screening mammogram examinations BREAST PARENCHYMAL COMPOSITION: There are scattered areas of fibroglandular density. FINDINGS: Biopsy marker on the right; history of prior benign left breast biopsy. There is no evidenc e of suspicious mass, calcification, or architectural distortion to suggest malignancy in either [address]. There has been no suspicious interval change. IMPRESSION: 1. No mammographic evidence of malignancy. 2. Recommend routine screening mammography in one year. BI-RADS Category 1: Negative Reviewed, dictated and finalized at location A.
== END 2024-02-04 14:54 | disposition home or self-care (01) ==
PROVIDERS: PCP Student in an Organized Health Care Education/Training Program
DX: Z12.31 Encounter for screening mammogram for malignant neoplasm of breast (principal)
CPT/HCPCS: 77063; 77067